=== PATIENT | male | born 1990 | race Caucasian/White ===

== ENCOUNTER 2017-08-18 23:16 | Emergency (ER) | payer MEDICAID, OTHER ==
[~2017-08-18] VITALS: Ht 157.5 cm; Wt 103.6 kg
[~2017-08-18 23:16] MED LIST: ALBU2.5V13 NEB; ALBU6.7H INH; CLIN-80 PO; CLON2TAB4 PO; FLUT1DIS7 INH; ONDA4TAB12 PO
[2017-08-18] MEDS ORDERED: normal saline 1000ml 1,000 ML IV ONE (23:31)
[2017-08-18] MEDS ORDERED: LORazepam 2 mg/ml vial IV ONE (23:35)
[2017-08-18] MEDS ORDERED: metoclopramide 5 mg/ml inj IV ONE ×2 (23:35→23:55)
[2017-08-18] MEDS ORDERED: pantoprazole 40 MG vial IV ONE (23:35)
[2017-08-18] MEDS ORDERED: glucagon, human recombinant 1mg kit IV ONE (23:35)
[2017-08-18] MEDS ORDERED: famotidine/PF 10 mg/ml inj IV ONE (23:35)
[2017-08-18] MEDS ORDERED: normal saline 1000ML IV soln IVB ONE (23:35)
[2017-08-18] MEDS ORDERED: OMEP20CA10 PO (23:40)
[2017-08-18] MEDS ORDERED: metoclopramide 5 mg/ml inj ONE (23:56)
[2017-08-19 00:18] VITALS: BP 137/96
== END 2017-08-19 00:21 | disposition home or self-care (01) ==
LOC: ER 23:16
DX: T18.8XXA Foreign body in other parts of alimentary tract, initial encounter (principal); J45.909 Unspecified asthma, uncomplicated; G89.29 Other chronic pain; F12.10 Cannabis abuse, uncomplicated; F15.10 Other stimulant abuse, uncomplicated; Z86.14 Personal history of Methicillin resistant Staphylococcus aureus infection; Z88.2 Allergy status to sulfonamides; Z91.040 Latex allergy status; Z79.899 Other long term (current) drug therapy; X58.XXXA Exposure to other specified factors, initial encounter; Y93.89 Activity, other specified; Y92.89 Other specified places as the place of occurrence of the external cause; Y99.8 Other external cause status
CPT/HCPCS: 96361; 96374; 96375; 99285; C9113; J1610; J2060; J2765; J3490; J7030

== ENCOUNTER 2020-05-19 13:26 | Emergency (ER) | payer OTHER ==
[~2020-05-19] VITALS: Ht 157.5 cm; Wt 109.1 kg
[~2020-05-19 13:26] MED LIST changes: -ALBU6.7H INH; +ALBU6.7H9 INH; -CLIN-80 PO; +CLIN-97 PO; +CLON-515 PO; -CLON2TAB4 PO; +OMEP20CA15 PO
[2020-05-19] MEDS ORDERED: dexamethasone 4mg tablet PO ONE (14:05)
[2020-05-19] MEDS ORDERED: ipratropium/albuterol 3ml nebule NEB ONE (14:05)
[2020-05-19] MEDS ORDERED: DOXY100C43 PO (14:34)
[2020-05-19] MEDS ORDERED: PRED20TA PO (14:34)
[2020-05-19 15:07] VITALS: BP 125/97
== END 2020-05-19 15:12 | disposition home or self-care (01) ==
LOC: ER 13:27
DX: J20.9 Acute bronchitis, unspecified (principal); R06.02 Shortness of breath; J45.909 Unspecified asthma, uncomplicated; G89.29 Other chronic pain; F32.9 Major depressive disorder, single episode, unspecified; F12.90 Cannabis use, unspecified, uncomplicated; F15.90 Other stimulant use, unspecified, uncomplicated; Z86.14 Personal history of Methicillin resistant Staphylococcus aureus infection; Z90.89 Acquired absence of other organs; Z72.89 Other problems related to lifestyle; Z88.2 Allergy status to sulfonamides; Z91.040 Latex allergy status; Z79.2 Long term (current) use of antibiotics; Z79.899 Other long term (current) drug therapy
CPT/HCPCS: 93005; 94640; 94760; 99283

== ENCOUNTER → 2021-02-08 | Outpatient (CLI) | payer BC ==
[~2021-02-08] MED LIST changes: -CLON-515 PO; +CLON2TAB45 PO
== END | disposition home or self-care (01) ==
LOC: RAD 15:12
PROVIDERS: ATTEND Orthopaedic Surgery
DX: S83.272A Complex tear of lateral meniscus, current injury, left knee, initial encounter (principal); X58.XXXA Exposure to other specified factors, initial encounter; Y93.89 Activity, other specified; Y92.89 Other specified places as the place of occurrence of the external cause; Y99.8 Other external cause status
CPT/HCPCS: 73721

== ENCOUNTER 2022-03-28 15:17 | Outpatient (CLI) | payer BC ==
[~2022-03-28 15:17] MED LIST changes: +ALBU6.7H14 INH; -ALBU6.7H9 INH
[2022-03-28 16:55] LABS: CLARITY,URINE CLEAR (Clear); COLOR,URINE YELLOW (Yellow); GLUCOSE, URINE NEGATIVE (Neg); KETONES,URINE NEGATIVE (Neg); LEUKOCYTE ESTERASE ,URINE NEGATIVE (Neg); NITRITES, URINE NEGATIVE (Neg); OCCULT BLOOD,URINE NEGATIVE (Neg); PH,URINE 5.5 (4.8-8.0); PROTEIN,URINE NEGATIVE (Neg); UROBILINOGEN,URINE 0.2 E.U/dL (0.2-1.0)
[2022-03-28 17:01] LABS: BASOPHILS % (AUTO) 0.6 % (0-1); EOSINOPHILS # (AUTO) 0.3 X10'3 (0-0.9); EOSINOPHILS % (AUTO) 4.2 % (0-6); HEMOGLOBIN 16.2 g/dl (14.0-17.9); LYMPHOCYTES # (AUTO) 2.4 X10'3 (1.1-4.8); LYMPHOCYTES % (AUTO) 30.6 % (21-51); MEAN CORPUSCULAR HEMOGLOBIN 30.5 PG (27.0-31.0); MEAN CORPUSCULAR HGB CONC 34.5 g/dL (33.0-36.5); MEAN CORPUSCULAR VOLUME 88.6 FL (78-98); MONOCYTES # (AUTO) 0.4 X10'3 (0-0.9); MONOCYTES % (AUTO) 5.1 % (2-12); NEUTROPHILS # (AUTO) 4.8 X10'3 (1.8-7.7); NEUTROPHILS % (AUTO) 59.5 % (42-75); PLATELET COUNT 226 X10'3 (140-440); RED CELL DISTRIBUTION WIDTH 14.6 % (11.5-14.5)
[2022-03-28 17:15] LABS: UA COLLECTION TYPE NON-SPECIFIED
[2022-03-28 17:16] LABS: ALANINE AMINOTRANSFERASE 54 U/L (12-78); ALBUMIN 4.2 G/DL (3.4-5.0); ALBUMIN/GLOBULIN RATIO 1.2 (1.1-1.5); ALKALINE PHOSPHATASE 91 IU/L (46-116); ANION GAP 4 (8-16); ASPARTATE AMINO TRANSFERASE 18 U/L (10-37); BILIRUBIN,TOTAL 1.4 MG/DL (0.1-1.0); BLOOD UREA NITROGEN 17 MG/DL (7-18); CALCIUM 8.9 MG/DL (8.5-10.1); CHLORIDE 105 MMOL/L (99-107); CREATININE 1.31 MG/DL (0.60-1.10); GLUCOSE 77 MG/DL (70-104); POTASSIUM 3.5 MMOL/L (3.5-5.1); SODIUM 141 MMOL/L (135-145); TOTAL CARBON DIOXIDE 31.9 MMOL/L (24-32); TOTAL PROTEIN 7.8 G/DL (6.4-8.2); eGFR 64 ML/MIN
[2022-03-28 17:22] LABS: HEMOGLOBIN A1C 5.5 % (4.5-6.2)
[2022-03-28 17:25] LABS: CHOL/HDL RATIO 2.4 (0.00-4.99); CHOLESTEROL 134 MG/DL (0-200); HDL CHOLESTEROL 55 MG/DL (35-60); LDL CHOLESTEROL 76 MG/DL (50-100); TRIGLYCERIDES 51 MG/DL (20-135)
[2022-03-30 11:19] LABS: % FREE PSA 21.1 % (.); PSA, FREE 0.19 ng/mL
== END 2022-03-28 23:59 | disposition home or self-care (01) ==
LOC: RAD 15:17
PROVIDERS: ATTEND Nurse Practitioner
DX: J34.3 Hypertrophy of nasal turbinates (principal); J34.2 Deviated nasal septum; J45.909 Unspecified asthma, uncomplicated; R06.83 Snoring; Z00.01 Encounter for general adult medical examination with abnormal findings
CPT/HCPCS: 36415; 70486; 80053; 80061; 81003; 82306; 82607; 82746; 83036; 84153; 84154; 84402; 84403; 84439; 84443; 85025

== ENCOUNTER 2022-09-30 14:44 | Outpatient (CLI) | payer BC | END 2022-09-30 23:59 | disposition home or self-care (01) | LOC: RAD 14:44 | PROVIDERS: ATTEND Nurse Practitioner | DX: R35.0 Frequency of micturition (principal); R35.1 Nocturia; R10.9 Unspecified abdominal pain; Z80.9 Family history of malignant neoplasm, unspecified | CPT/HCPCS: 76770 ==

== ENCOUNTER 2023-07-09 11:36 | Outpatient (CLI) | payer BC ==
[2023-07-09 12:27] LABS: BASOPHILS % (AUTO) 0.6 % (0-1); EOSINOPHILS # (AUTO) 0.3 X10'3 (0-0.9); EOSINOPHILS % (AUTO) 5.3 % (0-6); HEMATOCRIT 47.8 % (42.0-52.0); HEMOGLOBIN 16.2 g/dl (14.0-17.9); LYMPHOCYTES # (AUTO) 2.1 X10'3 (1.1-4.8); LYMPHOCYTES % (AUTO) 35.7 % (21-51); MEAN CORPUSCULAR HEMOGLOBIN 30.2 PG (27.0-31.0); MEAN CORPUSCULAR HGB CONC 33.9 g/dL (33.0-36.5); MEAN CORPUSCULAR VOLUME 89.1 FL (78-98); MEAN PLATELET VOLUME 9.1 FL (7.4-10.4); MONOCYTES # (AUTO) 0.4 X10'3 (0-0.9); MONOCYTES % (AUTO) 6.6 % (2-12); NEUTROPHILS % (AUTO) 51.8 % (42-75); PLATELET COUNT 206 X10'3 (140-440); RED BLOOD COUNT 5.37 X10'6 (4.70-6.10); RED CELL DISTRIBUTION WIDTH 13.8 % (11.5-14.5); WHITE BLOOD COUNT 5.8 X10'3 (4.5-11.0)
[2023-07-09 12:43] LABS: ALANINE AMINOTRANSFERASE 48 U/L (12-78); ALBUMIN 3.7 G/DL (3.4-5.0); ALKALINE PHOSPHATASE 85 IU/L (46-116); ANION GAP 8 (8-16); ASPARTATE AMINO TRANSFERASE 22 U/L (10-37); BILIRUBIN,TOTAL 1.2 MG/DL (0.1-1.0); BLOOD UREA NITROGEN 19 MG/DL (7-18); BUN/CREATININE RATIO 15.4 (10.0-20.0); CALCIUM 8.8 MG/DL (8.5-10.1); CHLORIDE 102 MMOL/L (99-107); CREATININE 1.23 MG/DL (0.60-1.10); GLUCOSE 102 MG/DL (70-104); SODIUM 138 MMOL/L (135-145); TOTAL CARBON DIOXIDE 27.9 MMOL/L (24-32); TOTAL PROTEIN 7.5 G/DL (6.4-8.2); eGFR 68 ML/MIN
[2023-07-10 08:26] LABS: C-PEPTIDE, SERUM 4.5 ng/mL (1.1-4.4); INSULIN 27.3 uIU/mL (2.6-24.9); TESTOSTERONE, SERUM 255 ng/dL (264-916)
[2023-07-10 15:02] LABS: HEPATITIS C VIRUS ANTIBODY Non Reactive (Non Reactive)
== END 2023-07-09 23:59 | disposition home or self-care (01) ==
LOC: LAB 11:36
PROVIDERS: ATTEND Physician Assistant
DX: Z11.59 Encounter for screening for other viral diseases (principal); J45.909 Unspecified asthma, uncomplicated; R17 Unspecified jaundice; E66.01 Morbid (severe) obesity due to excess calories; R79.89 Other specified abnormal findings of blood chemistry
CPT/HCPCS: 36415; 80053; 83525; 84402; 84403; 84681; 85025; 86706; 86803; 87522

== ENCOUNTER 2024-05-05 08:55 | Outpatient (CLI) | payer BC ==
[~2024-05-05 08:55] MED LIST changes: +ALBU18HF2 INH; +ONDA-243 PO; -ONDA4TAB12 PO
[2024-05-05 09:37] LABS: HEMOGLOBIN A1C 5.2 % (4.5-6.2)
[2024-05-05 09:44] LABS: TOTAL CARBON DIOXIDE 32.2 MMOL/L (24-32)
[2024-05-05 09:49] LABS: BASOPHILS % (AUTO) 0.5 % (0-1); EOSINOPHILS # (AUTO) 0.5 X10'3 (0-0.9); EOSINOPHILS % (AUTO) 6.5 % (0-6); HEMATOCRIT 53.9 % (42.0-52.0); LYMPHOCYTES # (AUTO) 2.5 X10'3 (1.1-4.8); LYMPHOCYTES % (AUTO) 32.5 % (21-51); MEAN CORPUSCULAR HEMOGLOBIN 30.4 PG (27.0-31.0); MEAN CORPUSCULAR HGB CONC 33.6 g/dL (33.0-36.5); MEAN CORPUSCULAR VOLUME 90.6 FL (78-98); MEAN PLATELET VOLUME 9.4 FL (7.4-10.4); MONOCYTES # (AUTO) 0.5 X10'3 (0-0.9); MONOCYTES % (AUTO) 6.8 % (2-12); NEUTROPHILS # (AUTO) 4.2 X10'3 (1.8-7.7); NEUTROPHILS % (AUTO) 53.7 % (42-75); PLATELET COUNT 204 X10'3 (140-440); RED BLOOD COUNT 5.95 X10'6 (4.70-6.10); RED CELL DISTRIBUTION WIDTH 14.7 % (11.5-14.5); WHITE BLOOD COUNT 7.7 X10'3 (4.5-11.0)
[2024-05-05 09:58] LABS: HEMOGLOBIN 18.1 g/dl (14.0-17.9)
[2024-05-05 10:44] LABS: ALANINE AMINOTRANSFERASE 66 U/L (12-78); ALBUMIN 3.9 G/DL (3.4-5.0); ALBUMIN/GLOBULIN RATIO 1.1 (1.1-1.5); ALKALINE PHOSPHATASE 64 IU/L (46-116); ANION GAP 5 (8-16); ASPARTATE AMINO TRANSFERASE 26 U/L (10-37); BILIRUBIN,TOTAL 1.8 MG/DL (0.1-1.0); BLOOD UREA NITROGEN 14 MG/DL (7-18); CALCIUM 8.8 MG/DL (8.5-10.1); CHLORIDE 102 MMOL/L (99-107); CREATININE 1.27 MG/DL (0.60-1.10); GLUCOSE 96 MG/DL (70-104); POTASSIUM 3.8 MMOL/L (3.5-5.1); SODIUM 139 MMOL/L (135-145); THYROID STIMULATING HORMONE 1.32 ulU/ml (0.34-4.50); TOTAL PROTEIN 7.3 G/DL (6.4-8.2); eGFR 65 ML/MIN
== END 2024-05-05 23:59 | disposition home or self-care (01) ==
LOC: LAB 08:55
PROVIDERS: ATTEND Physician Assistant
DX: E29.1 Testicular hypofunction (principal)
CPT/HCPCS: 36415; 80053; 82670; 83036; 83525; 84402; 84403; 84436; 84443; 85025

== ENCOUNTER 2024-05-25 12:17 | Outpatient (CLI) | payer BC ==
[2024-05-25 12:42] LABS: BASOPHILS # (AUTO) 0.1 X10'3 (0-0.2); BASOPHILS % (AUTO) 0.9 % (0-1); EOSINOPHILS # (AUTO) 0.4 X10'3 (0-0.9); EOSINOPHILS % (AUTO) 4.8 % (0-6); HEMATOCRIT 53.5 % (42.0-52.0); HEMOGLOBIN 17.9 g/dl (14.0-17.9); LYMPHOCYTES % (AUTO) 36.1 % (21-51); MEAN CORPUSCULAR HEMOGLOBIN 30.2 PG (27.0-31.0); MEAN CORPUSCULAR HGB CONC 33.5 g/dL (33.0-36.5); MEAN CORPUSCULAR VOLUME 90.2 FL (78-98); MEAN PLATELET VOLUME 9.2 FL (7.4-10.4); MONOCYTES # (AUTO) 0.5 X10'3 (0-0.9); MONOCYTES % (AUTO) 6.2 % (2-12); NEUTROPHILS # (AUTO) 4.4 X10'3 (1.8-7.7); PLATELET COUNT 211 X10'3 (140-440); RED BLOOD COUNT 5.93 X10'6 (4.70-6.10); RED CELL DISTRIBUTION WIDTH 13.4 % (11.5-14.5); WHITE BLOOD COUNT 8.4 X10'3 (4.5-11.0)
== END 2024-05-25 23:59 | disposition home or self-care (01) ==
LOC: LAB 12:17
PROVIDERS: ATTEND Physician Assistant
DX: M79.671 Pain in right foot (principal); R79.89 Other specified abnormal findings of blood chemistry
CPT/HCPCS: 36415; 73630; 85025

== ENCOUNTER 2024-10-14 09:43 | Outpatient (CLI) | payer BC ==
[2024-10-14 10:55] LABS: ALANINE AMINOTRANSFERASE 62 U/L (12-78); ALBUMIN 3.7 G/DL (3.4-5.0); ALBUMIN/GLOBULIN RATIO 1.2 (1.1-1.5); ALKALINE PHOSPHATASE 64 IU/L (46-116); ANION GAP 5 (8-16); ASPARTATE AMINO TRANSFERASE 19 U/L (10-37); BLOOD UREA NITROGEN 9 MG/DL (7-18); BUN/CREATININE RATIO 6.1 (10.0-20.0); CALCIUM 8.7 MG/DL (8.5-10.1); CHLORIDE 103 MMOL/L (99-107); CHOL/HDL RATIO 2.7 (0.00-4.99); CHOLESTEROL 119 MG/DL (0-200); CREATININE 1.48 MG/DL (0.60-1.10); GLUCOSE 80 MG/DL (70-104); HDL CHOLESTEROL 44 MG/DL (35-60); LDL CHOLESTEROL 66 MG/DL (50-100); POTASSIUM 3.4 MMOL/L (3.5-5.1); SODIUM 139 MMOL/L (135-145); TOTAL CARBON DIOXIDE 30.7 MMOL/L (24-32); TOTAL PROTEIN 6.8 G/DL (6.4-8.2); TRIGLYCERIDES 54 MG/DL (20-135); eGFR 55 ML/MIN
[2024-10-15 11:12] LABS: TESTOSTERONE, SERUM 748 ng/dL (264-916)
[2024-10-18 15:10] LABS: TESTOSTERONE, FREE, DIRECT 24.3 pg/mL (8.7-25.1)
== END 2024-10-14 23:59 | disposition home or self-care (01) ==
LOC: LAB 09:43
PROVIDERS: ATTEND Physician Assistant
DX: E66.01 Morbid (severe) obesity due to excess calories (principal)
CPT/HCPCS: 36415; 80053; 80061; 84402; 84403

== ENCOUNTER 2024-11-15 10:58 | Emergency (ER) | payer BC ==
[~2024-11-15] VITALS: Ht 157.5 cm; Wt 100.8 kg
[2024-11-15] VITALS (10 sets, daily range): BP systolic 109–135; BP diastolic 75–96; PULSE 85–132; RESP 13–19; TEMP 97.3; O2SAT 95–99
--- NOTE | 2024-11-15 11:30 | Physician Documentation ---
History of Present Illness ~ Chief Complaint: Foreign body Stated Complaint: FOREIGN BODY Time Seen by MD: 11:19 Primary Medical Doctor: Ismael DUPREE 34-year-old male presents to the emergency department with a complaint of esophageal food bolus that is stuck, history of similar presentation at least 2 times in the past, patient states he was eating chicken and now he can not swall ow, he presents with nausea and vomiting. Timing/Duration: minutes Quality/Severity: none Pain Location: epigastric Radiation: no radiation Activities on Onset: after eating Modifiy Factors: Improves with: vomiting Recent Activites: none Emesis Description: food particles Bloody Stools: none Medication Reconciliation Allergies: Coded Allergies: Sulfa (Sulfonamide Antibiotics) (Verified Allergy, Unknown, 11/15/24) latex (Verified Allergy, Unknown, 11/15/24) Scheduled Albuterol Sulfate (Albuterol Sulfate), 1 VIAL NEB Q4HPRN, (Reported) Clindamycin HCL* (Clindamycin HCL*), 1 CAP PO Q6H Fluticasone/Salmeterol (Advair 500-50 Diskus), 1 PUFFS INH BID, (Reported) Omeprazole (Omeprazole), 2 CAP PO BIDAC Scheduled PRN Albuterol Sulfate (Proventil Hfa), 2 PUFFS INH Q4H PRN for SOB or wheezing, (Reported) Albuterol Sulfate (Ventolin Hfa), 2 PUFFS INH Q4HPRN PRN for wheezing Clonazepam (Clonazepam), 1 TABLET PO TID PRN for for anxiety/agitation, (Reported) ONDANSETRON ODT 4mg tablet (Ondansetron Odt), 1 TABLET PO Q6H PRN PRN for nausea/vomiting Past Medical History Past Medical History: Allergic Rhinitis, *CARDIOVASCULAR*, Asthma, Chronic Pain, MRSA Abscess, Depression Past Surgical History: tonsillectomy Alcohol Use: Occasionally Drug Use: marijuana, methamphetamine Lives with: S/O Lives In: Home Occupation: employed Review of Systems All Other Systems at this time: Reviewed and Negative Constitutional: Reports: see HPI Gastrointestinal: Reports: nausea, vomiting Physical Exam Vital Signs: RN Vital Signs have been reviewed: Yes, Temperature: 97.3, Source: Temporal, Heart Rate: 111, Respiratory Rate: 18, BP: 145/103, Pulse Oximetry: 98, Weight: 100.800 Pulse Oximetry Reflects: adequate oxygenation General Appearance: ill-appearing, mild distress EENT: PERRL/EOMI, normal ENT inspection Respiratory: lungs clear, normal breath sounds, no respiratory distress Chest: no accessory muscle use, chest non-tender Prostate: normal, soft Progress Results/Orders Results/Orders Orders - RAIZA BACH DO * Iv Access / Saline Lock * (11/15/24 11:21) Completed Orders - RAIZA BACH DO Glucagon, Human Recombinant (Glucagen In (11/15/24 11:25) Ondansetron Inj. (Zofran 4mg/2ml Vial) (11/15/24 11:25) Medications Received in ER Medications (Trade) Dose Ordered Sig/Ivon Route PRN Reason Start Time Stop Time Status Last Admin Dose Admin (Glucagen inj) 2 mg ONCE ONCE IV 11/15/24 11:25 11/15/24 11:26 DC 11/15/24 11:45 2 MG (Zofran 4mg/2ml vial) 4 mg ONCE ONCE IV 11/15/24 11:25 11/15/24 11:26 DC 11/15/24 11:45 4 MG Vital Signs 11/15/24 11/15/24 11/15/24 11:01 12:02 12:05 Temp 97.3 Pulse 111 101 Resp 18 18 18 B/P (MAP) 145/103 99/77 (84) Pulse Ox 98 99 Re-Evaluation Re-Evaluation : Progress Follow up with the hours patient re-evaluated still is unable to swallow, await to hear from GI. 12:55 p.m. discussed case with GI Dr. Mckay he will evaluate the patient for endoscopy. Departure Disposition: ADMITTED INPATIENT Admitted to Inpatient Unit: other Impression: Primary Impression: Achalasia Condition: Guarded Referrals: NO PRIMARY CARE PROVIDER (PCP) Signature Scribe Signature: None Attestation: Dictated by myself RAIZA BACH DO November 15, 2024 11:30
[2024-11-15] MEDS: glucagon, human recombinant 1mg kit IV ONE (11:45)
[2024-11-15] MEDS: ondansetron/PF 4mg/2ml inj IV ONE (11:45)
[2024-11-15] MEDS: midazolam 1 mg/ML 2ml injection ONE (13:24)
[2024-11-15] MEDS: fentaNYL/PF 50MCG/1 ML 2ML syringe ONE (13:24)
[2024-11-15] MEDS ORDERED: simethicone 40mg/0.6ml oral drops 30ml ONE (13:37)
--- NOTE | 2024-11-15 19:04 | OPERATIVE REPORT ---
DATE OF SURGERY: 11/15/2024 DICTATING PHYSICIAN: Dale Mckay MD INDICATION: A 34-year-old gentleman presents for inpatient EGD for dysphagia and esophageal obstruction. PROCEDURE DESCRIPTION: Consent was obtained. The EGD scope was advanced to the second portion of the duodenum. The patient tolerated the procedure well. No immediate complications. SEDATION MONITORING: Sedation was provided by Dale Mckay MD, assisted by GI lab aid. MEDICATIONS: Versed 4 mg IV and fentanyl 100 mcg IV. PROCEDURE TIME: 15 minutes. FINDINGS: There was a piece of meat stuck in the distal esophagus. The meat was soft. A snare was attempted to grab the meat, but just cut through. Then, the meat was gently pushed down to the stomach. There was esophagitis likely caused by the esophageal foreign body irritation. There was also mild stenosis at distal esophagus. Biopsy was taken for histology. There was a medium-sized hiatal hernia. Food material in the stomach limited exam. The exam in the duodenal bulb and second portion of the duodenum appeared normal. IMPRESSION: Esophageal foreign body, removed; esophageal mild stenosis, biopsied; esophagitis; hiatal hernia; food in the stomach limiting the exam. RECOMMENDATIONS: May have clear liquid diet today. May take pantoprazole 40 mg p.o. daily for 3 months. Follow up with PCP. Follow up biopsy reports. If dysphagia continues, follow up with the primary to refer for outpatient EGD for further evaluation or may consider dilation. Dale Mckay MD TID: [id number] RECEIPT: [id number] VENANCIO/AUGUSTO
== END 2024-11-15 16:13 | disposition home or self-care (01) ==
LOC: ER 10:58
DX: K22.0 Achalasia of cardia (principal); F32.A Depression, unspecified; J45.909 Unspecified asthma, uncomplicated; F12.90 Cannabis use, unspecified, uncomplicated; F15.90 Other stimulant use, unspecified, uncomplicated; Z88.2 Allergy status to sulfonamides; Z91.040 Latex allergy status; Z79.52 Long term (current) use of systemic steroids; Z79.899 Other long term (current) drug therapy
CPT/HCPCS: 43239; 43247; 96374; 96375; 99285; J1610; J2250; J2405; J3010; J7030; 99152; C1889

== ENCOUNTER 2025-04-06 23:42 | Emergency (ER) | payer BC ==
[~2025-04-06] VITALS: Ht 160 cm; Wt 102.2 kg
[~2025-04-06 23:42] MED LIST changes: +CLIN-224 PO; -CLIN-97 PO
[2025-04-06 23:53] VITALS: BP 109/65; PULSE 90; TEMP 97.3; O2SAT 99
[2025-04-07 00:11] VITALS: RESP 14
--- NOTE | 2025-04-07 00:37 | Physician Documentation ---
History of Present Illness ~ Chief Complaint: Foreign body Stated Complaint: F/B IN OAT Time Seen by MD: 01:03 Primary Medical Doctor: Ismael Mode of Arrival: Ambulatory HPI This is a 35-year-old male who presents with concern for a piece of food lodged in his esophagus, patient reports he was eating a burrito when he choked and now is unable to swallow including liquids and saliva. Patient reports no difficulty breathing, though reports if he tries to swallow he will choke. Parvin ent reports no other acute symptoms or concerns. Patient reports he is referred to GI for esophageal dilation but has yet to follow up Medication Reconciliation Allergies: Coded Allergies: Sulfa (Sulfonamide Antibiotics) (Verified Allergy, Unknown, 04/06/25) latex (Verified Allergy, Unknown, 04/06/25) Scheduled Albuterol Sulfate (Albuterol Sulfate), 1 VIAL NEB Q4HPRN, (Reported) Clindamycin HCL* (Clindamycin HCL*), 1 CAP PO Q6H Fluticasone/Salmeterol (Advair 500-50 Diskus), 1 PUFFS INH BID, (Reported) Omeprazole (Omeprazole), 2 CAP PO BIDAC Scheduled PRN Albuterol Sulfate (Proventil Hfa), 2 PUFFS INH Q4H PRN for SOB or wheezing, (Reported) Albuterol Sulfate (Ventolin Hfa), 2 PUFFS INH Q4HPRN PRN for wheezing Clonazepam (Clonazepam), 1 TABLET PO TID PRN for for anxiety/agitation, (Reported) ONDANSETRON ODT 4mg tablet (Ondansetron Odt), 1 TABLET PO Q6H PRN PRN for nausea/vomiting Past Medical History Past Medical History: Allergic Rhinitis, *CARDIOVASCULAR*, Asthma, Chronic Pain, MRSA Abscess, Depression Past Surgical History: tonsillectomy Alcohol Use: Occasionally Drug Use: marijuana, methamphetamine Lives with: S/O Lives In: Home Occupation: employed Review of Systems ROS As stated above in the HPI, otherwise all systems are reviewed and negative. Physical Exam Vital Signs: Temperature: 97.3, Source: Oral, Heart Rate: 90, Respiratory Rate: 14, BP: 109/65, Pulse Oximetry: 99, Weight: 102.200 Physical Exam General: Patient is awake, alert, oriented x4 in no acute distress. Holding emesis bag Head: Normocephalic and atraumatic. Eyes: Conjunctival normal. EOMI. PERRL. ENT: Mucous membranes moist. Neck: Supple, trachea is midline. Chest: Clear to auscultation bilaterally without rales, rhonchi, or wheezes. There is no accessory muscle use or retractions. Cardiac: RRR without murmurs, gallops, or rubs. Progress Results/Orders Results/Orders Orders - ANSELMO MEDRANO MD Normal Saline 1000ml (0.9% Sodium Chlori (04/07/25 01:10) Completed Orders - ANSELMO MEDRANO MD Glucagon, Human Recombinant (Glucagen In (04/07/25 01:10) Ondansetron Inj. (Zofran 4mg/2ml Vial) (04/07/25 01:10) Medications Received in ER Medications (Trade) Dose Ordered Sig/Ivon Route PRN Reason Start Time Stop Time Status Last Admin Dose Admin (Glucagen inj) 1 mg ONCE ONCE IV 04/07/25 01:10 04/07/25 01:11 DC 04/07/25 01:27 1 MG (Zofran 4mg/2ml vial) 4 mg ONCE ONCE IV 04/07/25 01:10 04/07/25 01:11 DC 04/07/25 01:27 4 MG Sodium Chloride 1,000 ml @ 1,000 mls/hr ONCE ONCE IV 04/07/25 01:10 04/07/25 02:09 04/07/25 01:24 1,000 MLS/HR Vital Signs 04/06/25 04/07/25 23:53 00:11 Temp 97.3 Pulse 90 Resp 16 14 B/P (MAP) 109/65 Pulse Ox 99 Medical Decision Making Findings Patient presented to the emergency room for evaluation of esophageal foreign body. Differentials include but are not limited to esophageal foreign body, esophageal abrasion, aspiration, psychogenic, achalasia therefore glucagon ordered with resolution of symptoms. I believe patient was suffering from food bolus that has since resolved. He has been instructed to choose food thoroughly and to follow up with GI for esophageal dilation and to continue PPI. Departure Disposition: HOME / SELF CARE / HOMELESS Impression: Primary Impression: Esophageal foreign body Condition: Improved Discharge Instructions: Achalasia Referrals: NO PRIMARY CARE PROVIDER (PCP) Signature Scribe Signature: No scribe Attestation: The note accurately reflects work and decisions made by me.Anselmo Medrano MD 04/07/25 01:54 CANDI STAFFORD Apr 07, 2025 00:37 ANSELMO MEDRANO MD Apr 07, 2025 01:09
[2025-04-07] MEDS: normal saline 1000ml 1,000 ML IV ONE (01:24)
[2025-04-07] MEDS: ondansetron/PF 4mg/2ml inj IV ONE (01:27)
[2025-04-07] MEDS: glucagon, human recombinant 1mg kit IV ONE (01:27)
== END 2025-04-07 01:58 | disposition home or self-care (01) ==
LOC: ER 23:42
DX: T18.108A Unspecified foreign body in esophagus causing other injury, initial encounter (principal); J45.909 Unspecified asthma, uncomplicated; F12.90 Cannabis use, unspecified, uncomplicated; F15.90 Other stimulant use, unspecified, uncomplicated; G89.29 Other chronic pain; F32.A Depression, unspecified; Z88.2 Allergy status to sulfonamides; Z91.040 Latex allergy status; Z90.89 Acquired absence of other organs; Z86.14 Personal history of Methicillin resistant Staphylococcus aureus infection; Z72.89 Other problems related to lifestyle; Z79.899 Other long term (current) drug therapy; W44.9XXA Unspecified foreign body entering into or through a natural orifice, initial encounter; Y93.89 Activity, other specified; Y92.89 Other specified places as the place of occurrence of the external cause; Y99.8 Other external cause status
CPT/HCPCS: 96361; 96374; 96375; 99284; J1610; J2405; J7030

== ENCOUNTER 2025-04-15 13:50 | Day surgery (SDC) | payer BC ==
[~2025-04-15] VITALS: Ht 160 cm; Wt 100.7 kg
[~2025-04-15 13:50] MED LIST changes: -ALBU18HF2 INH; -ALBU2.5V13 NEB; -ALBU6.7H14 INH; +ALBU8HFA PO; +ANAS1TAB10 PO; +CETI1TAB PO; -CLIN-224 PO; -CLON2TAB45 PO; +FAMO20TA8 PO; +LIDOcaine 2% Viscous 15ml cup MM ONE; -OMEP20CA15 PO; +OMEP20CA16 PO; -ONDA-243 PO; +TEST200V33 IM; +ringers solution, lacted 1,000 ML IV SCH
[2025-04-15 14:00] VITALS: BP 140/98; PULSE 86; RESP 16; TEMP 98.2; O2SAT 100
[2025-04-15] MEDS ORDERED: ipratropium/albuterol 3ml nebule NEB ONE (15:15)
[2025-04-15] MEDS ORDERED: fentaNYL/PF 50MCG/1 ML 2ML syringe ONE (15:21)
[2025-04-15] MEDS ORDERED: MIDAZolam 1 MG/ML 5ML VIAL ONE (15:21)
[2025-04-15 15:50] VITALS: BP 132/82; PULSE 104; RESP 16; O2SAT 99
[2025-04-15 16:00] VITALS: BP 137/77; PULSE 101; RESP 16; O2SAT 95
[2025-04-15 16:10] VITALS: BP 109/76; PULSE 104; RESP 16; O2SAT 96
[2025-04-15 16:20] VITALS: BP 129/90; PULSE 104; RESP 16; O2SAT 97
[2025-04-15] MEDS: MIDAZolam 1 MG/ML 5ML VIAL IV ONE (16:27)
[2025-04-15] MEDS: fentaNYL/PF 50MCG/1 ML 2ML syringe IV ONE (16:27)
[2025-04-15 16:30] VITALS: BP 131/75; PULSE 90; RESP 16; O2SAT 97
== END 2025-04-15 16:30 | disposition home or self-care (01) ==
LOC: GI LAB 13:50
PROVIDERS: ATTEND Internal Medicine Gastroenterology
DX: R13.19 Other dysphagia (principal); K21.00 Gastro-esophageal reflux disease with esophagitis, without bleeding; K29.80 Duodenitis without bleeding; K25.9 Gastric ulcer, unspecified as acute or chronic, without hemorrhage or perforation; K31.89 Other diseases of stomach and duodenum; E11.9 Type 2 diabetes mellitus without complications; J45.909 Unspecified asthma, uncomplicated; G47.33 Obstructive sleep apnea (adult) (pediatric); F90.9 Attention-deficit hyperactivity disorder, unspecified type; F41.9 Anxiety disorder, unspecified; Z79.899 Other long term (current) drug therapy; Z98.890 Other specified postprocedural states; Z88.2 Allergy status to sulfonamides; Z91.040 Latex allergy status
CPT/HCPCS: 43239; J2250; J3010; J7030; J7120; Z7512; 99152; 99153; A4620